=== PATIENT | female | born 1945 | race Caucasian/White ===

== ENCOUNTER → 2017-01-24 | Outpatient (CLI) | payer MEDICARE, OTHER ==
[~2017-01-24] MED LIST: ALPRAZOLAM0.5 M3 PO; ASPIRIN 81MG TA81 MG PO; ATORVASTATIN CA20 M1 PO; CEPHALEXIN250 MG PO; FOLBIC RF1 TAB PO; INCRUSE EL62.5 MCG/A IH; LISINOPRIL5 MG NG; MONTELUKAST SOD10 MG PO; OMEPRAZOLE20 MG PO; VITAMIN D400 UNI1 PO; XANAX 0.25MG0.25 MG PO
[2017-01-24 18:20] LABS: HEMOGLOBIN 14.1 g/dL (12.2-16.2); LYMPH # 1.5 K/mm3 (0.7-4.5); LYMPH % 29.6 % (10-50.0)
[2017-01-24 20:01] LABS: BUN 10 mg/dL (7-18)
[2017-01-24 20:03] LABS: GFR (ESTIMATED) 71 ML/MIN (59-)
[2017-01-26 06:38] LABS: Folate (Folic Acid) >20.0 ng/mL (>3.0); Vitamin B12 1703 pg/mL (211-946)
== END ==
LOC: LAB 17:15
PROVIDERS: Physician Assistant
DX: Z00.00 Encounter for general adult medical examination without abnormal findings (principal); N30.21 Other chronic cystitis with hematuria; Z79.899 Other long term (current) drug therapy